=== PATIENT | female | born 1975 | race Caucasian/White ===

== ENCOUNTER 2017-12-10 16:15 | Emergency (ER) | payer OTHER ==
[~2017-12-10] VITALS: Ht 170.2 cm; Wt 89.4 kg
[~2017-12-10 16:15] MED LIST: ACETAMINOPHEN-1 EAC1 PO; ALDOMET250 MG PO; CIPROFLOXACIN500 M1 PO; DICYCLOMINE HCL20 MG PO; ENDOCET 5-3251 EACH PO; FIORICET,ESG1 TABLET PO; HYOSCYAMINE0.125 M1 SL; LOMOTIL TABLET1 EACH PO; LOSARTAN POTAS100 MG PO; LOSARTAN POTASS25 MG PO; LOSARTAN POTASS50 MG PO; METRONIDAZOLE500 MG PO; Motrin PO; OMEPRAZOLE20 MG PO; PRILOSEC40 MG PO; PROMETHAZINE HC25 M1 PO; TOPAMAX50 MG PO; TYLENOL REGULA325 MG PO; ZOFRAN ODT4 MG PO; ZOFRAN4 MG PO
[2017-12-10 16:44] LABS: HEMATOCRIT 37.1 % (36.0-46.0); HEMOGLOBIN 11.9 G/DL (11.9-15.5); MCH 26.6 PG (29.0-34.0); MCHC 32.1 G/DL (30.0-36.0); PLATELET COUNT 243 K/uL (156-360); RBC DIS.WIDTH-CV 16.1 % (11.8-14.6); RBC DIS.WIDTH-SD 48.6 % (39-53); RED BLOOD COUNT 4.47 M/uL (3.80-5.20); WHITE BLOOD COUNT 9.3 K/uL (4.1-10.2)
[2017-12-10 17:01] LABS: ALBUMIN 4.2 g/dL (3.2-4.8)
[2017-12-10 17:02] LABS: CHLORIDE 108 mEq/L (99-109); POTASSIUM 4.7 mEq/L (3.7-5.4); SODIUM 142 mEq/L (136-147)
[2017-12-10 17:04] LABS: GLUCOSE 95 mg/dL (70-99); TOTAL PROTEIN 7.4 g/dL (6.4-8.3)
[2017-12-10 17:06] LABS: TOTAL BILIRUBIN 0.3 mg/dL (0.0-1.0)
[2017-12-10 17:07] LABS: ALKALINE PHOSPHATASE 61 IU/L (3-129)
[2017-12-10 17:08] LABS: CREATININE 0.8 mg/dL (0.6-1.3); GFR ESTIMATE (CALCULATED) > 59 mL/min/
[2017-12-10 17:09] LABS: AST (GOT) 18 IU/L (2-34); UREA NITROGEN (BUN) 14 mg/dL (9-23)
[2017-12-10 17:11] LABS: ALT (GPT) 19 IU/L (3-49)
[2017-12-10 17:17] LABS: QUANTITATIVE HCG < 4.0 MIU/ML
[2017-12-10 17:51] LABS: APPEARANCE SL.HAZY ((CLEAR)); BILIRUBIN NEGATIVE; BLOOD NEGATIVE; COLOR YELLOW ((YELLOW)); GLUCOSE (STRIP) NEGATIVE; KETONES NEGATIVE; LEUKOCYTES SMALL; NITRITE NEGATIVE; PROTEIN (STRIP) NEGATIVE; UROBILINOGEN 0.2 MG/DL (0.2-1.0)
[2017-12-10 17:57] LABS: BACTERIA 1+ /HPF; EPITHELIAL CELLS 1+ /HPF; MUCUS TRACE /LPF; RED BLOOD CELLS 0-5 /HPF (0-5); UCUL ADDED? YES
[2017-12-10 18:52] LABS: TROP-I INTERPRETATION NEGATIVE; TROPONIN-I < 0.01 ng/mL (0.0-0.30)
[2017-12-10 20:22] LABS: TROP-I INTERPRETATION NEGATIVE; TROPONIN-I 0.01 ng/mL (0.0-0.30)
[2017-12-10 21:01] VITALS: BP 139/80
== END 2017-12-10 21:01 | disposition home or self-care (01) ==
LOC: EME 16:15
PROVIDERS: Nurse Practitioner Family
DX: R10.13 Epigastric pain (principal); R07.9 Chest pain, unspecified; M54.9 Dorsalgia, unspecified; R11.0 Nausea; Z87.440 Personal history of urinary (tract) infections; Z87.442 Personal history of urinary calculi; I10 Essential (primary) hypertension; Z86.73 Personal history of transient ischemic attack (TIA), and cerebral infarction without residual deficits; Z72.0 Tobacco use
CPT/HCPCS: 71046; 80053; 81003; 84484; 84702; 85027; 87086; 87651 90; 93005; 99281; 99284

== ENCOUNTER 2017-12-19 17:16 | Emergency (ER) | payer OTHER ==
[~2017-12-19] VITALS: Ht 170.2 cm; Wt 87.0 kg
[2017-12-19 17:59] LABS: APPEARANCE CLOUDY ((CLEAR)); BILIRUBIN NEGATIVE; BLOOD SMALL; COLOR YELLOW ((YELLOW)); GLUCOSE (STRIP) NEGATIVE; KETONES NEGATIVE; LEUKOCYTES MODERATE; NITRITE NEGATIVE; PROTEIN (STRIP) NEGATIVE; SPECIFIC GRAVITY 1.023 (1.000-1.030); UROBILINOGEN 0.2 MG/DL (0.2-1.0)
[2017-12-19 18:01] LABS: HEMATOCRIT 39.4 % (36.0-46.0); HEMOGLOBIN 12.8 G/DL (11.9-15.5); MCH 26.2 PG (29.0-34.0); MCHC 32.5 G/DL (30.0-36.0); MCV 80.7 FL (83-99); PLATELET COUNT 348 K/uL (156-360); RBC DIS.WIDTH-CV 14.5 % (11.8-14.6); RBC DIS.WIDTH-SD 42.2 % (39-53); RED BLOOD COUNT 4.88 M/uL (3.80-5.20); WHITE BLOOD COUNT 12.7 K/uL (4.1-10.2)
[2017-12-19 18:09] LABS: CHLORIDE 101 mEq/L (99-109); POTASSIUM 3.7 mEq/L (3.7-5.4); SODIUM 137 mEq/L (136-147)
[2017-12-19 18:11] LABS: GLUCOSE 105 mg/dL (70-99)
[2017-12-19 18:15] LABS: CREATININE 0.8 mg/dL (0.6-1.3); GFR ESTIMATE (CALCULATED) > 59 mL/min/; UREA NITROGEN (BUN) 18 mg/dL (9-23)
[2017-12-19 18:23] LABS: QUANTITATIVE HCG < 4.0 MIU/ML
[2017-12-19 18:56] LABS: BACTERIA RARE /HPF; EPITHELIAL CELLS 3+ /HPF; HYALINE CASTS 0-5 /LPF; MUCUS TRACE /LPF; RED BLOOD CELLS 0-5 /HPF (0-5); UCUL ADDED? YES; WHITE BLOOD CELLS 15-20 /HPF (0-5)
[2017-12-19] MEDS ORDERED: ZOFRAN ODT8 MG PO (19:51)
[2017-12-19] MEDS ORDERED: BACTRIM,SEPT1 TABLET PO ×2 (19:51→19:54)
[2017-12-19] MEDS ORDERED: TRAMADOL HCL50 MG PO (19:51)
[2017-12-19 20:02] VITALS: BP 110/61
== END 2017-12-19 20:08 | disposition home or self-care (01) ==
LOC: EME 17:16
PROVIDERS: Physician Assistant
DX: N12 Tubulo-interstitial nephritis, not specified as acute or chronic (principal); I10 Essential (primary) hypertension; F32.9 Major depressive disorder, single episode, unspecified; F41.9 Anxiety disorder, unspecified; Z87.440 Personal history of urinary (tract) infections; Z87.442 Personal history of urinary calculi; Z86.73 Personal history of transient ischemic attack (TIA), and cerebral infarction without residual deficits; F17.200 Nicotine dependence, unspecified, uncomplicated
CPT/HCPCS: 74176; 80048; 81003; 84702; 85027; 87077; 87086; 87147; 99281; 99284; J0696; J1885